=== PATIENT | female | born 1945 | race Caucasian/White ===

== ENCOUNTER 2018-04-23 04:26 | Emergency (ER) | payer MEDICARE, OTHER | END 2018-04-23 04:53 | disposition home or self-care (01) | LOC: ERS 04:26 | DX: K04.7 Periapical abscess without sinus (principal); R22.2 Localized swelling, mass and lump, trunk ==

== ENCOUNTER 2018-04-23 11:28 | Emergency (ER) | payer MEDICARE, OTHER | END 2018-04-23 12:20 | disposition home or self-care (01) | LOC: ERS 11:28 | DX: K04.7 Periapical abscess without sinus (principal); L03.211 Cellulitis of face | CPT/HCPCS: 99283 ==

== ENCOUNTER 2024-12-10 11:54 | Emergency (ER) | payer MEDICARE, OTHER ==
[2024-12-10 13:13] LABS: #Basophils 0.03 10x3/uL (0.0-0.2); %Basophils 0.5 % (0.0-1.0); %Eosinophils 0.5 % (0.0-10.0); %Lymphocytes 12.2 % (21.0-51.0); %Monocytes 6.1 % (0.0-10.0); %Neutrophils 80.4 % (42.0-75.0); Hematocrit 38.1 % (36.0-47.0); Hemoglobin 12.5 g/dL (12.0-16.0); Mean Corpuscular HGB CONC 32.8 g/dL (32.0-36.0); Mean Corpuscular Hemoglobin 30.5 pg (27.0-31.0); Mean Corpuscular Volume 92.9 fL (78.0-98.0); Platelet Count 375 10x3/uL (130-400)
[2024-12-10 13:30] LABS: PTT 28.3 sec (22.9-36.1); Prothrombin Time 13.4 sec (12.0-14.7)
[2024-12-10 13:35] LABS: ALT (SGPT) 20 U/L (Less than 34); AST (SGOT) 25 U/L (11-34); Albumin 3.8 g/dL (3.1-4.5); Alkaline Phosphatase 81 U/L (40-110); Anion Gap 10 mmol/L (10-20); BUN (Urea Nitrogen) 14 mg/dL (9.8-20.1); Bilirubin, Total 0.6 mg/dL (0.3-1.2); Calc. Creatinine Clearance 0 mL/min (70-130); Calcium 9.2 mg/dL (7.8-10.44); Carbon Dioxide 28 mmol/L (23-31); Chloride 104 mmol/L (98-107); Estimated GFR 88; Globulin 3.6 g/dL (2.4-3.5); Glucose 95 mg/dL (83-110); Potassium 3.6 mmol/L (3.5-5.1); Protein, Total 7.4 g/dL (5.8-8.1); Sodium 138 mmol/L (136-145)
[2024-12-10 13:37] LABS: Troponin I Less than 0.010 ng/mL (< 0.028)
[2024-12-10 14:18] LABS: Bilirubin Negative (Negative); Blood, Urine Trace (Negative); Glucose, Urine (Dipstick) Negative (Negative); Ketone, Urine Negative (Negative); Leukocyte Negative (Negative); Nitrite Negative (Negative); Protein, Urine (Dipstick) Negative (Neg-Trace); Urobilinogen 0.2 mg/dL (Less than 2)
[2024-12-10 14:24] LABS: Bacteria/HPF None Seen HPF (None Seen); CAUTI Indications for Culture Pelvic or flank pain; RBC/HPF 0-3 HPF (0-3); Squamous Epithelial 0-3 HPF (0-3); WBC/HPF 0-3 HPF (0-3)
[2024-12-10 14:27] LABS: Clarity Clear (Clear); Specific Gravity, Urine 1.052 (1.002-1.036)
[2024-12-10 14:35] LABS: Urine Culture Reflex No No
== END 2024-12-10 15:04 | disposition home or self-care (01) ==
LOC: ERS 11:54
DX: R42 Dizziness and giddiness (principal)
CPT/HCPCS: 70496; 70498; 71045; 80053; 81001; 83880; 84484; 85025; 85610; 85730; 93005; 94760

== ENCOUNTER 2025-09-21 15:38 | Outpatient (CLI) | payer MEDICARE, OTHER | END 2025-09-21 15:39 | disposition home or self-care (01) | LOC: BICRAD 15:38 | PROVIDERS: ATTEND Nurse Practitioner Family | DX: M51.360 Other intervertebral disc degeneration, lumbar region with discogenic back pain only (principal); M51.370 Other intervertebral disc degeneration, lumbosacral region with discogenic back pain only; M47.816 Spondylosis without myelopathy or radiculopathy, lumbar region | CPT/HCPCS: 72100 ==